=== PATIENT | male | born 2000 | race American Indian/Alaskan Native ===

== ENCOUNTER 2019-08-11 21:36 | Emergency (ER) | payer SELFPAY ==
[2019-08-11 21:40] VITALS: BP 147/84
--- NOTE | 2019-08-11 21:42 | Event Note ---
ED Screening Note ED Screening Note: states that about a week ago he had flu like symptoms which improved states he has a continued cough +mucus production This initial assessment/diagnostic orders/clinical plan/treatment(s) is/are subject to change based on patients health status, clinical progression and re- assessment by fellow clinical providers in the ED. Further treatment and workup at subsequent clinical providers discretion. Patient/guardian urged not to elope from the ED as their condition may be serious if not clinically assessed and managed. Initial orders include: CXR
[2019-08-11] MEDS ORDERED: predniSONE 20 MG TAB PO ONE (22:11)
[2019-08-11] MEDS ORDERED: ALBUTEROL 2.5 MG/3 ML NEBU IH ONE (22:11)
[2019-08-11] MEDS ORDERED: IBUPROFEN 800 MG TAB PO ONE (22:11)
--- NOTE | 2019-08-11 22:15 | Emergency Department Report ---
- General Chief Complaint: Upper Respiratory Infection Stated Complaint: COUGH/CHEST TIGHTNESS Time Seen by Provider: 08/11/19 21:40 Source: patient Mode of arrival: Ambulatory Limitations: No Limitations - History of Present Illness Initial Comments: Ms. Engle is a 18 y/o aaf who present productive cough yellow thick x 3 weeks, noc fever, wheezing. no chest wall pain with cough. There is no n/v no back pain , no dizziness, or light headedness. MD Complaint: fever, cough, sore throat, rhinorrhea, nasal congestion Onset/Timin -: week(s) Severity: moderate Severity scale (0 -10): 4 Quality: sharp Consistency: intermittent Improves With: nothing Worsens With: activity, other (environmental exposure) Context: sick contacts Associated Symptoms: fever, rhinorrhea, nasal congestion, sore throat, cough, shortness of breath. denies: nausea, vomiting, epistaxis, ear pain - Related Data Previous Rx's Medication Instructions Recorded Last Taken Type ALBUTEROL Inhaler (OR & NICU) 2 puff IH QID PRN #1 each 08/11/19 Unknown Rx [ProAir HFA Inhaler] Azithromycin [Zithromax Z-MARY] 250 mg PO DAILY #6 tab 08/11/19 Unknown Rx Benzonatate [Tessalon Perles] 100 mg PO Q8HR PRN #30 capsule 08/11/19 Unknown Rx Ibuprofen [Motrin 800 MG tab] 800 mg PO Q8HR PRN #30 tablet 08/11/19 Unknown Rx predniSONE [Deltasone] 40 mg PO QDAY 5 Days #10 tab 08/11/19 Unknown Rx Allergies Allergy/AdvReac Type Severity Reaction Status Date / Time No Known Allergies Allergy Unverified 08/11/19 21:43 ED Review of Systems ROS: Stated complaint: COUGH/CHEST TIGHTNESS Other details as noted in HPI Constitutional: denies: chills, fever Eyes: denies: eye pain, eye discharge, vision change ENT: denies: ear pain, throat pain Respiratory: cough, shortness of breath, wheezing Cardiovascular: chest pain (chest wall pain right ). denies: palpitations Endocrine: no symptoms reported Gastrointestinal: denies: abdominal pain, nausea, vomiting, diarrhea Genitourinary: denies: urgency, dysuria Musculoskeletal: denies: back pain, joint swelling, arthralgia Skin: denies: rash, lesions Neurological: denies: headache, weakness, paresthesias Psychiatric: denies: anxiety, depression Hematological/Lymphatic: denies: easy bleeding, easy bruising ED Past Medical Hx - Past Medical History Previous Medical History?: No - Surgical History Past Surgical History?: No - Social History Smoking Status: Never Smoker Substance Use Type: None - Medications Home Medications: Home Medications Medication Instructions Recorded Confirmed Last Taken Type ALBUTEROL Inhaler (OR & NICU) 2 puff IH QID PRN #1 each 08/11/19 Unknown Rx [ProAir HFA Inhaler] Azithromycin [Zithromax Z-MARY] 250 mg PO DAILY #6 tab 08/11/19 Unknown Rx Benzonatate [Tessalon Perles] 100 mg PO Q8HR PRN #30 capsule 08/11/19 Unknown Rx Ibuprofen [Motrin 800 MG tab] 800 mg PO Q8HR PRN #30 tablet 08/11/19 Unknown Rx predniSONE [Deltasone] 40 mg PO QDAY 5 Days #10 tab 08/11/19 Unknown Rx ED Physical Exam - General Limitations: No Limitations General appearance: alert, in no apparent distress - Head Head exam: Present: atraumatic, normocephalic - Eye Eye exam: Present: normal appearance, PERRL, EOMI - ENT ENT exam: Present: normal orophraynx, mucous membranes moist, TM's normal bilaterally, normal external ear exam - Expanded ENT Exam Expanded Throat exam: Positive: normal inspection, other (uvula midline no exudate no lesions no stridor ) - Neck Neck exam: Present: normal inspection - Respiratory Respiratory exam: Present: normal lung sounds bilaterally, chest wall tenderness (right lateral ). Absent: respiratory distress, wheezes, stridor - Cardiovascular Cardiovascular Exam: Present: regular rate, normal rhythm, normal heart sounds. Absent: systolic murmur, diastolic murmur, rubs, gallop - GI/Abdominal GI/Abdominal exam: Present: soft, normal bowel sounds. Absent: distended, tenderness, bruit, hernia - Rectal Rectal exam: Present: deferred - Extremities Exam Extremities exam: Present: normal inspection, full ROM, normal capillary refill. Absent: tenderness - Back Exam Back exam: Present: normal inspection, full ROM. Absent: tenderness, CVA tenderness (R), CVA tenderness (L), rash noted - Neurological Exam Neurological exam: Present: alert, oriented X3 - Psychiatric Psychiatric exam: Present: normal affect, normal mood - Skin Skin exam: Present: warm, dry, intact, normal color. Absent: rash ED Course Vital Signs 08/11/19 08/11/19 21:39 22:20 Temperature 98.3 F Pulse Rate 93 H Respiratory 18 18 Rate Blood Pressure 147/84 O2 Sat by Pulse 98 Oximetry ED Medical Decision Making - Radiology Data Radiology results: report reviewed, image reviewed Findings [facility] [address] [place] [address] XRay Report Signed Patient: JUANITO LANG IV MR#: [id number] : 2000 Acct:[id number] Age/Sex: 18 / M ADM Date: 08/11/19 Loc: ED Attending Dr: Ordering Physician: NOHELIA MARTIN Date of Service: 08/11/19 Procedure(s): XR chest routine 2V Accession Number(s): [id number] cc: NOHELIA MARTIN Fluoro Time In Minutes: CHEST 2 VIEWS INDICATION / CLINICAL INFORMATION: productive cough. COMPARISON: None available. FINDINGS: SUPPORT DEVICES: None. HEART / MEDIASTINUM: No significant abnormality. LUNGS / PLEURA: No significant pulmonary or pleural abnormality. No pneumothorax. ADDITIONAL FINDINGS: No significant additional findings. IMPRESSION: 1. No acute abnormality of the chest. Signer Name: Anastacio Segovia MD Signed: 08/11/2019 10:08 PM Workstation Name: [id number] Transcribed By: MN Dictated By: Anastacio Segovia MD Electronically Authenticated By: Anastacio Segovia MD Signed Date/Time: 08/11/192207 DD/ 07 TD/TT: - Medical Decision Making cxr: normal no infiltrates no opacities, wheezing is resolved, plan: dc to home with rx for albuterol, prednisone, zpack, ibuprofen, tessalon follow up with pcp in 2-3 days. pt verbalized agreement and understanding of same. pt dc'd to home in stable condition at this time. Critical care attestation.: If time is entered above; I have spent that time in minutes in the direct care of this critically ill patient, excluding procedure time. ED Disposition Clinical Impression: Bronchitis Disposition: DC-01 TO HOME OR SELFCARE Is pt being admited?: No Does the pt Need Aspirin: No Condition: Stable Instructions: Acute Bronchitis (ED) Prescriptions: predniSONE [Deltasone] 40 mg PO QDAY 5 Days #10 tab Ibuprofen [Motrin 800 MG tab] 800 mg PO Q8HR PRN #30 tablet PRN Reason: pain ALBUTEROL Inhaler (OR & NICU) [ProAir HFA Inhaler] 2 puff IH QID PRN #1 each PRN Reason: Shortness Of Breath Benzonatate [Tessalon Perles] 100 mg PO Q8HR PRN #30 capsule PRN Reason: Cough Azithromycin [Zithromax Z-MARY] 250 mg PO DAILY #6 tab Referrals: [facility] [Outside] - 3-5 Days Forms: Work/School Release Form(ED) Time of Disposition: 23:09
== END 2019-08-11 23:30 | disposition home or self-care (01) ==
LOC: ED 21:36
DX: J40 Bronchitis, not specified as acute or chronic (principal); Z79.899 Other long term (current) drug therapy
CPT/HCPCS: 71046; 94640; 99283; J7512